=== PATIENT | male | born 1975 | race Caucasian/White ===

== ENCOUNTER 2017-06-10 17:57 | Emergency (ER) | payer OTHER, MEDICAID ==
[2017-06-10 18:07] VITALS: RESP 16; TEMP 97.9
[2017-06-10] MEDS ORDERED: DIAZEPAM 5 MG TAB PO ONE (19:25)
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
[2017-06-10 21:12] VITALS: BP 108/72; PULSE 88; O2SAT 94
== END 2017-06-10 20:55 | disposition home or self-care (01) ==
DX: S46.811A Strain of other muscles, fascia and tendons at shoulder and upper arm level, right arm, initial encounter (principal); S60.221A Contusion of right hand, initial encounter; Z87.891 Personal history of nicotine dependence; V47.6XXA Car passenger injured in collision with fixed or stationary object in traffic accident, initial encounter; Y92.410 Unspecified street and highway as the place of occurrence of the external cause